=== PATIENT | male | born 1950 | race Caucasian/White ===

== ENCOUNTER 2017-12-17 21:49 | Emergency (ER) | payer MEDICARE, OTHER, SELFPAY ==
[2017-12-17 21:56] VITALS: BP 127/79; PULSE 77; RESP 18; TEMP 36.7; O2SAT 96; BMI 41.3
--- NOTE | 2017-12-17 22:03 | XR_ITS ---
XR chest portable HISTORY: ITS.REASON: CHEST PAIN ORDERING PHYSICIAN: Avi Lopes MD PATIENT AGE: 67 years COMPARISON: 12/17/2014 FINDINGS: The cardiomediastinal silhouette and pulmonary vascularity are within normal limits. The left hilum is slightly prominent but stable and may be due to overlying vasculature or postsurgical changes. There are surgical clips in the mediastinum and left hilum. The lungs are clear without infiltrates, suspicious nodules, or pleural effusions. No acute bony abnormalities. IMPRESSION: Postsurgical change, no change with no acute finding
[2017-12-17 22:33] LABS: Basophils % 0.7 % (0.1-2.0); Eosinophils # 0.2 K/mm3 (0.0-0.4); Eosinophils % 4.2 % (0.1-12.0); Hematocrit 38.3 % (42.0-52.0); Hemoglobin 12.8 g/dL (14.1-18.0); Lymphocytes # 1.5 K/mm3 (0.7-4.5); Lymphocytes % 27.5 K/mm3 (10-50); Mean Corpuscular HGB Conc 33.4 g/dL (31.8-35.4); Mean Corpuscular Hemoglobin 29.6 pg (27.0-31.2); Mean Corpuscular Volume 88.7 fl (80-94); Mean Platelet Volume 7.6 fl (7.4-10.4); Monocytes # 0.4 K/mm3 (0.1-1.0); Monocytes % 6.4 % (1.7-9.3); Neutrophils # 3.4 K/mm3 (1.8-7.8); Neutrophils % 61.2 % (37.0-80.0); Platelet Count 326 K/mm3 (142-424); Red Blood Count 4.31 M/mm3 (4.60-6.20); Red Cell Distribution Width 13.9 % (11.5-17.5); White Blood Count 5.5 K/mm3 (4.8-10.8)
[2017-12-17 22:43] LABS: Prothrombin Time 17.4 seconds (9.4-11.8)
[2017-12-17 23:00] LABS: Alanine Aminotransferase 56 U/L (12-78); Albumin Level 3.2 gm/dL (3.4-5.0); Albumin/Globulin Ratio 0.7 (1.1-1.8); Alkaline Phosphatase 79 U/L (46-116); Anion Gap 14.3 mEq/L (5-15); Aspartate Amino Transferase 54 U/L (15-37); Bilirubin,Total 0.2 mg/dL (0.2-1.0); Blood Urea Nitrogen 20 mg/dL (7-18); CKMB Relative Index 1.1 U/L (0-4.0); Calcium 8.6 mg/dL (8.5-10.1); Carbon Dioxide 29 mmol/L (21.0-32.0); Chloride 94 mmol/L (98-107); Creatine Kinase 83 U/L (39-308); Creatine Kinase MB 0.9 mg/ml (0.0-3.6); Creatinine Clearance Estimated 49 mL/min (0-300); Creatinine,Serum 1.43 mg/dL (0.70-1.30); Estimated Glomerular Filt Rate 49 ml/min (>60); GFR (African American) 60 ML/MIN (>60); Globulin 4.4 gm/dl (1.3-3.2); Potassium 4.3 mmoL/L (3.5-5.1); Sodium 133 mmol/L (136-145); Total Protein,Serum 7.6 gm/dL (6.4-8.2); Troponin I < 0.02 ng/ml (0.00-0.06)
[2017-12-17 23:02] LABS: Glucose 449 mg/dL (74-106)
--- NOTE | 2017-12-17 23:14 | HMH.EDCP ---
ED Disposition Clinical Impression: Chest pain Qualifiers: Chest pain type: precordial pain Qualified Code(s): R07.2 - Precordial pain Disposition: Home, Self-Care Condition on Discharge: Good Instructions: DI for Chest Pain Additional Instructions: call card in am Referrals: Zachary Nieves [Primary Care Provider] - - Critical Care Critical Care Time: No Attestation: On 12/17/17, the high probability of a clinically significant, sudden or life threatening deterioration of the following system(s) required my full and direct attention, intervention and personal management. The time I documented below is in addition to time spent performing reported procedures but includes the following listed in this critical care notation. Medical Decision Making - Medical Records Medical records reviewed: Yes: I reviewed the patient's medical records. Vital Signs: 12/17/17 21:56 12/18/17 00:34 Temperature 98.1 F Temperature Source Temporal Artery Scan Pulse Rate [Right Brachial] 77 65 Respiratory Rate 18 18 Blood Pressure [Right Arm] 127/79 138/81 Blood Pressure Mean [Right Arm] 95 100 Blood Pressure Source [Right Arm] Automatic Cuff Automatic Cuff Blood Pressure Position [Right Arm] Supine Supine 02 Sat by Pulse Oximetry 96 96 Oxygen Delivery Method Room Air Room Air - Lab Data Lab results reviewed: Yes: I reviewed the patient's lab results. Lab Results 12/17/17 22:25: WBC 5.5, RBC 4.31 L, Hgb 12.8 L, Hct 38.3 L, MCV 88.7, MCH 29.6, MCHC 33.4, RDW 13.9, Plt Count 326, MPV 7.6, Neut % (Auto) 61.2, Lymph % (Auto) 27.5, [place] % (Auto) 6.4, Eos % (Auto) 4.2, Baso % (Auto) 0.7, Neut # (Auto) 3.4, Lymph # (Auto) 1.5, [place] # (Auto) 0.4, Eos # (Auto) 0.2, Baso # (Auto) 0.0 12/17/17 22:25: Sodium 133 L, Potassium 4.3, Chloride 94 L, Carbon Dioxide 29, Anion Gap 14.3, BUN 20 H, Creatinine 1.43 H, Estimated Creat Clear 49, Estimated GFR 49 L, Est GFR ( Amer) 60, Glucose 449 H*, Calcium 8.6, Total Bilirubin 0.2, AST 54 H, ALT 56, Alkaline Phosphatase 79, Total Creatine Kinase 83, CK-MB (CK-2) 0.9, CK-MB (CK-2) Rel Index 1.1, Troponin I < 0.02, Total Protein 7.6, Albumin 3.2 L, Globulin 4.4 H, Albumin/Globulin Ratio 0.7 L 12/17/17 22:25: PT 17.4 H, INR 1.60 H, APTT 36.0 H 12/18/17 00:45: Troponin I < 0.02 Result diagrams: 12/17/17 22:25 12/17/17 22:25 Orders (Tests/Meds): ED MEDICATIONS Discontinued Medications Generic Name Dose Route Start Last Admin Trade Name Freq PRN Reason Stop Dose Admin Aspirin 324 mg 12/17/17 22:04 12/17/17 22:09 Aspirin 81mg Chewable Tablet PO 12/17/17 22:05 324 mg ONCE ONE Administration Nitroglycerin 1 gm 12/17/17 23:16 12/17/17 23:20 Nitroglycerin 1 Inch Oint Udp TD 12/17/17 23:17 1 gm ONCE ONE Administration ORDERS Category Date Time Status Chest XR -- portable [XR chest portable] Stat Exams 12/17/17 22:03 Taken - Radiology Data #1 Image(s): Chest Image Reviewed: Yes I reviewed the patient's radiology image Preliminary Findings: Normal/NAD - ECG Data Tracing #1 I reviewed this ECG and interpreted as documented below: Ischemic changes: non-specific ST-T wave changes - Rosendo Inquiry Pt receiving controlled substance: No Chest Pain HPI - General Chief Complaint: Chest Pain Stated Complaint: CHEST PAIN Time Seen by Provider: 12/17/17 23:15 Mode of Arrival: Family Vehicle Source of Information: Patient, Spouse, Medical Record Limitations: No Limitations Description of Symptoms (Recalled from ER Triage Doc. 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 - History of Present Illness HPI narrative: this wm with onset of ant chest pain tonight with hx of cad complaint: chest pain indicative of cardiac Onset (ago): hour(s) Duration: now resolved Activity at onset: during rest Pain location: substernal Severity: moderate Pain radiation: none Associ
--- NOTE | 2017-12-17 23:19 | ED_ITS ---
ED Disposition Clinical Impression: Chest pain Qualifiers: Chest pain type: precordial pain Qualified Code(s): R07.2 - Precordial pain Disposition: Home, Self-Care Condition on Discharge: Good Instructions: DI for Chest Pain Additional Instructions: call card in am Referrals: Zachary Nieves [Primary Care Provider] - - Critical Care Critical Care Time: No Attestation: On 12/17/17, the high probability of a clinically significant, sudden or life threatening deterioration of the following system(s) required my full and direct attention, intervention and personal management. The time I documented below is in addition to time spent performing reported procedures but includes the following listed in this critical care notation. Medical Decision Making - Medical Records Medical records reviewed: Yes: I reviewed the patient's medical records. Vital Signs: 12/17/17 21:56 12/18/17 00:34 Temperature 98.1 F Temperature Source Temporal Artery Scan Pulse Rate [Right Brachial] 77 65 Respiratory Rate 18 18 Blood Pressure [Right Arm] 127/79 138/81 Blood Pressure Mean [Right Arm] 95 100 Blood Pressure Source [Right Arm] Automatic Cuff Automatic Cuff Blood Pressure Position [Right Arm] Supine Supine 02 Sat by Pulse Oximetry 96 96 Oxygen Delivery Method Room Air Room Air - Lab Data Lab results reviewed: Yes: I reviewed the patient's lab results. Lab Results 12/17/17 22:25: WBC 5.5, RBC 4.31 L, Hgb 12.8 L, Hct 38.3 L, MCV 88.7, MCH 29.6 , MCHC 33.4, RDW 13.9, Plt Count 326, MPV 7.6, Neut % (Auto) 61.2, Lymph % (Auto ) 27.5, [place] % (Auto) 6.4, Eos % (Auto) 4.2, Baso % (Auto) 0.7, Neut # (Auto) 3.4, Lymph # (Auto) 1.5, [place] # (Auto) 0.4, Eos # (Auto) 0.2, Baso # (Auto) 0.0 12/17/17 22:25: Sodium 133 L, Potassium 4.3, Chloride 94 L, Carbon Dioxide 29, Anion Gap 14.3, BUN 20 H, Creatinine 1.43 H, Estimated Creat Clear 49, Estimated GFR 49 L, Est GFR ( Amer) 60, Glucose 449 H*, Calcium 8.6, Total Bilirubin 0.2, AST 54 H, ALT 56, Alkaline Phosphatase 79, Total Creatine Kinase 83, CK-MB (CK-2) 0.9, CK-MB (CK-2) Rel Index 1.1, Troponin I < 0.02, Total Protein 7.6, Albumin 3.2 L, Globulin 4.4 H, Albumin/Globulin Ratio 0.7 L 12/17/17 22:25: PT 17.4 H, INR 1.60 H, APTT 36.0 H 12/18/17 00:45: Troponin I < 0.02 Result diagrams: 12/17/17 22:25 12/17/17 22:25 Orders (Tests/Meds): ED MEDICATIONS Discontinued Medications Generic Name Dose Route Start Last Admin Trade Name Freq PRN Reason Stop Dose Admin Aspirin 324 mg 12/17/17 22:04 12/17/17 22:09 Aspirin 81mg Chewable Tablet PO 12/17/17 22:05 324 mg ONCE ONE Administration Nitroglycerin 1 gm 12/17/17 23:16 12/17/17 23:20 Nitroglycerin 1 Inch Oint Udp TD 12/17/17 23:17 1 gm ONCE ONE Administration ORDERS Category Date Time Status Chest XR -- portable [XR chest portable] Stat Exams 12/17/17 22:03 Taken - Radiology Data #1 Image(s): Chest Image Reviewed: Yes I reviewed the patient's radiology image Preliminary Findings: Normal/NAD - ECG Data Tracing #1 I reviewed this ECG and interpreted as documented below: Ischemic changes: non-specific ST-T wave changes - Rosendo Inquiry Pt receiving controlled substance: No Chest Pain HPI - General Chief Complaint: Chest Pain Stated Complaint: CHEST P
[2017-12-18 00:34] VITALS: BP 138/81; PULSE 65; RESP 18; O2SAT 96
[2017-12-18 01:33] LABS: Troponin I < 0.02 ng/ml (0.00-0.06)
[2017-12-18 02:11] VITALS: BP 124/66; PULSE 60; RESP 16; O2SAT 96
== END 2017-12-18 02:17 | disposition home or self-care (01) ==
PROVIDERS: Emergency Provider Emergency Medicine; PCP Internal Medicine
DX: R07.2 Precordial pain (principal); E10.65 Type 1 diabetes mellitus with hyperglycemia; Z79.4 Long term (current) use of insulin; Z79.84 Long term (current) use of oral hypoglycemic drugs; Z79.01 Long term (current) use of anticoagulants; I25.10 Atherosclerotic heart disease of native coronary artery without angina pectoris; K21.9 Gastro-esophageal reflux disease without esophagitis; Z87.891 Personal history of nicotine dependence
CPT/HCPCS: 71045; 80053; 82550; 82553; 84484; 85025; 85610; 85730; 93005; 93041; 99283

== ENCOUNTER → 2017-12-25 12:03 | Outpatient (CLI) | payer MEDICARE, OTHER, SELFPAY ==
--- NOTE | 2017-12-25 12:08 | XR_ITS ---
XR hand LT min 3V HISTORY: ITS.REASON: Left hand trigger finger ORDERING PHYSICIAN: Tay Quiros MD PATIENT AGE: 67 years COMPARISON: None FINDINGS: No fracture or dislocation. No lytic or blastic change. There is normal mineralization.. There are mild osteoarthritic changes involving the the apices of the second through fifth digits greater at the second digit and the interphalangeal joint of the first digit. No fracture or dislocation. No lytic or blastic change.. IMPRESSION: Mild osteoarthritic changes of the fingers
== END ==
PROVIDERS: PCP Internal Medicine; Visit Provider Orthopaedic Surgery
DX: M65.30 Trigger finger, unspecified finger (principal)
CPT/HCPCS: 73130

== ENCOUNTER 2017-12-27 17:40 | Emergency (ER) | payer MEDICARE, OTHER, SELFPAY ==
[2017-12-27 18:06] VITALS: BP 130/70; PULSE 65; RESP 20; TEMP 36.6; O2SAT 97; BMI 41.0
--- NOTE | 2017-12-27 18:44 | HMH.EDUTC ---
[facility] [place] Impression: Cough Disposition: Still a Patient Condition on Discharge: Fair Referrals: Zachary Nieves [Primary Care Provider] - Time of Disposition: 20:05 (Transfer to ER room 7) Medical Decision Making Vital Signs: 12/27/17 18:06 Temperature 97.9 F Temperature Source Temporal Artery Scan Pulse Rate [Right Brachial] 65 Respiratory Rate 20 Blood Pressure [Right Arm] 130/70 Blood Pressure Mean [Right Arm] 90 Blood Pressure Source [Right Arm] Automatic Cuff Blood Pressure Position [Right Arm] Sitting 02 Sat by Pulse Oximetry 97 Oxygen Delivery Method Room Air - Lab Data Lab results reviewed: Yes: I reviewed the patient's lab results. Lab Results 12/27/17 19:00: WBC 9.5, RBC 5.56, Hgb 16.2, Hct 50.0, MCV 90.0, MCH 29.1, MCHC 32.3, RDW 14.2, Plt Count 426 H, MPV 7.6, Neut % (Auto) 70.1, Lymph % (Auto) 19.4, [place] % (Auto) 6.3, Eos % (Auto) 3.5, Baso % (Auto) 0.8, Neut # (Auto) 6.7, Lymph # (Auto) 1.8, [place] # (Auto) 0.6, Eos # (Auto) 0.3, Baso # (Auto) 0.1 12/27/17 19:00: Sodium 141, Potassium 4.6, Chloride 101, Carbon Dioxide 29, Anion Gap 15.6 H, BUN 30 H, Creatinine 1.35 H, Estimated Creat Clear 93, Estimated GFR 53 L, Est GFR ( Amer) 64, Glucose 147 H 12/27/17 19:24: Influenza Type A Ag Negative, Influenza Type B Ag Negative Result diagrams: 12/27/17 19:00 12/27/17 19:00 Orders (Tests/Meds): ORDERS Category Date Time Status CXR 2 view (NOT portable) [XR chest 2V] Stat Exams 12/27/17 18:49 Taken - Physician Consults Physician Consulted: Dr. Hernandez, ER Time: 20:00 Reason -: Pt condition Comment/Response: Rvwd PMHx, HPI, exam, results, CXR images. Wants pt in ER for further evalution considering PMHx and no definitive cause. - Rosendo Inquiry Pt receiving controlled substance: No - Reevaluation(s) Time: 20:05 Reevaluation #1: Discussed results and CXR with pt and I presume, . Discussed ER MD's concern. Reluctant but agreeable to transfer to ER. [facility] - General Stated complaint: Cough, Chest Congestion Time Seen by Provider: 12/27/17 18:44 Mode of Arrival: Ambulatory Source of Information: Patient Limitations: No Limitations Description of Symptoms (Recalled from Triage Doc. by RN): COUGH, CONGESTION, WEAKNESS, BODYACHES HEENT Symptoms (Recalled from RN notes): No Resp Symptoms (Recalled from RN notes): Yes (COUGH, CONGESTION) Skin Symptoms (Recalled from RN notes): No MS Symptoms (Recalled from RN notes): No Functional Status (Recalled from RN notes): N/A - History of Present Illness Provider Complaint: Here w/ c/o nonprod cough since Sunday, 3 days ago. Fatigue primarily starting yesterday. Tylenol cold and flu today didn't help. No fever, SOA, wheezing. nonsmoker. Denies hx of lung disease. No known sick contacts. - Related Data Home Medications Medication Instructions Recorded Confirmed atorvastatin 20 mg tablet 20 mg PO QDAY 11/21/17 12/17/17 escitalopram 20 mg tablet 20 mg PO QDAY 11/21/17 12/17/17 gabapentin 300 mg capsule 1,200 mg PO BID 11/21/17 12/17/17 gemfibrozil 600 mg tablet 600 mg PO BID 11/21/17 12/17/17 metformin 1,000 mg tablet 1,000 mg PO BID 11/21/17 12/17/17 nortriptyline 10 mg capsule 10 mg PO BID 11/21/17 12/17/17 ropinirole 5 mg tablet 5 mg PO TID tab 11/21/17 12/17/17 tramadol 50 mg tablet 50 mg PO Q6H 11/21/17 12/17/17 valsartan 320 1 tab PO QDAY 11/21/17 12/17/17 mg-hydrochlorothiazide 25 mg tablet warfarin 2.5 mg tablet 6 mg PO QDAY 11/21/17 12/17/17 Insulin NPH Hum/Reg Insulin Hm 70 unit SQ PM 12/17/17 12/17/17 [Novolin 70-30 100 Unit/ml Vial] Insulin NPH Hum/Reg Insulin Hm 110 unit SQ DAILY 12/17/17 12/17/17 [Novolin 70-30 100 Unit/ml Vial] Metoprolol Tartrate [Lopressor 100 mg PO BID 12/17/17 12/17/17 100mg Tablet] Allergies Allergy/AdvReac Type Severity Reaction Status Date / Time No Known Allergies Allergy Verified 12/25/17 13:06 - Worker'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
--- NOTE | 2017-12-27 18:49 | XR_ITS ---
XR chest 2V HISTORY: ITS.REASON: cough, fatigue, no SOA, nonsmoker ORDERING PHYSICIAN: Mary Love PATIENT AGE: 67 years COMPARISON: 12/17/2017 FINDINGS: The left hilum and remains prominent with sutures in the left hilum and there is some increased density in the retrocardiac region on the left. The remaining lungs are clear. Degenerative change thoracic spine. IMPRESSION: Persistent prominence of the left hilum with some increased density of the left retrocardiac region. These findings may be postsurgical. Cannot exclude developing infiltrate in the left lung base. Chest CT with contrast may be of further value.
[2017-12-27 19:17] LABS: Basophils # 0.1 K/mm3 (0-0.2); Basophils % 0.8 % (0.1-2.0); Eosinophils # 0.3 K/mm3 (0.0-0.4); Eosinophils % 3.5 % (0.1-12.0); Hemoglobin 16.2 g/dL (14.1-18.0); Lymphocytes # 1.8 K/mm3 (0.7-4.5); Lymphocytes % 19.4 K/mm3 (10-50); Mean Corpuscular HGB Conc 32.3 g/dL (31.8-35.4); Mean Corpuscular Hemoglobin 29.1 pg (27.0-31.2); Mean Platelet Volume 7.6 fl (7.4-10.4); Monocytes # 0.6 K/mm3 (0.1-1.0); Monocytes % 6.3 % (1.7-9.3); Neutrophils # 6.7 K/mm3 (1.8-7.8); Neutrophils % 70.1 % (37.0-80.0); Platelet Count 426 K/mm3 (142-424); Red Blood Count 5.56 M/mm3 (4.60-6.20); Red Cell Distribution Width 14.2 % (11.5-17.5); White Blood Count 9.5 K/mm3 (4.8-10.8)
[2017-12-27 19:23] LABS: Anion Gap 15.6 mEq/L (5-15); Blood Urea Nitrogen 30 mg/dL (7-18); Carbon Dioxide 29 mmol/L (21.0-32.0); Chloride 101 mmol/L (98-107); Creatinine Clearance Estimated 93 mL/min (0-300); Creatinine,Serum 1.35 mg/dL (0.70-1.30); Estimated Glomerular Filt Rate 53 ml/min (>60); GFR (African American) 64 ML/MIN (>60); Glucose 147 mg/dL (74-106); Potassium 4.6 mmoL/L (3.5-5.1); Sodium 141 mmol/L (136-145)
[2017-12-27 19:24] LABS: UTC Influenza A Antigen Negative (Negative); UTC Influenza B Antigen Negative (Negative)
[2017-12-27 20:08] VITALS: BP 140/100; PULSE 64; RESP 12; TEMP 36.7; O2SAT 95; BMI 41.0
[2017-12-27 20:46] LABS: CKMB Relative Index 1.1 U/L (0-4.0); Creatine Kinase 76 U/L (39-308); Creatine Kinase MB 0.8 mg/ml (0.0-3.6); Troponin I < 0.02 ng/ml (0.00-0.06)
[2017-12-27 21:01] VITALS: BP 120/68; PULSE 82; RESP 18; TEMP 37.1; O2SAT 97
--- NOTE | 2017-12-27 21:05 | HMH.EDURI ---
ED Disposition Clinical Impression: Cough Acute bronchitis Qualifiers: Bronchitis organism: unspecified organism Qualified Code(s): J20.9 - Acute bronchitis, unspecified Disposition: Home, Self-Care Condition on Discharge: Good Instructions: DI for Acute Bronchitis Additional Instructions: Please take the antibiotics prescribed as directed, follow-up with Dr. Nieves within 24 hours if not better. If unable to see Dr. Nieves and if not getting any better, please return to this, same, emergency room, for reevaluation. Prescriptions: Amoxicillin/Potassium Clav [Augmentin 875-125 Tablet] 1 tab PO Q12H #20 tab Referrals: Zachary Nieves [Primary Care Provider] - Time of Disposition: 21:05 - Critical Care Critical Care Time: No Attestation: On 12/27/17, the high probability of a clinically significant, sudden or life threatening deterioration of the following system(s) required my full and direct attention, intervention and personal management. The time I documented below is in addition to time spent performing reported procedures but includes the following listed in this critical care notation. Medical Decision Making - Medical Records Medical records reviewed: Yes: I reviewed the patient's medical records. Vital Signs: 12/27/17 18:06 12/27/17 20:08 12/27/17 21:01 Temperature 97.9 F 98.1 F 98.7 F Temperature Source Temporal Artery Scan Oral Oral Pulse Rate 82 Pulse Rate [Right Brachial] 65 64 Respiratory Rate 20 12 18 Blood Pressure 120/68 Blood Pressure [Right Arm] 130/70 140/100 Blood Pressure Mean [Right Arm] 90 113 Blood Pressure Source Automatic Cuff Blood Pressure Source [Right Arm] Automatic Cuff Automatic Cuff Blood Pressure Position Supine Blood Pressure Position [Right Arm] Sitting Supine 02 Sat by Pulse Oximetry 97 95 Oxygen Delivery Method Room Air Room Air Room Air 12/27/17 21:04 Temperature Temperature Source Pulse Rate Pulse Rate [Right Brachial] Respiratory Rate Blood Pressure Blood Pressure [Right Arm] Blood Pressure Mean [Right Arm] Blood Pressure Source Blood Pressure Source [Right Arm] Blood Pressure Position Blood Pressure Position [Right Arm] 02 Sat by Pulse Oximetry Oxygen Delivery Method Room Air - Lab Data Lab results reviewed: Yes: I reviewed the patient's lab results. Lab Results 12/27/17 19:00: WBC 9.5, RBC 5.56, Hgb 16.2, Hct 50.0, MCV 90.0, MCH 29.1, MCHC 32.3, RDW 14.2, Plt Count 426 H, MPV 7.6, Neut % (Auto) 70.1, Lymph % (Auto) 19.4, [place] % (Auto) 6.3, Eos % (Auto) 3.5, Baso % (Auto) 0.8, Neut # (Auto) 6.7, Lymph # (Auto) 1.8, [place] # (Auto) 0.6, Eos # (Auto) 0.3, Baso # (Auto) 0.1 12/27/17 19:00: Sodium 141, Potassium 4.6, Chloride 101, Carbon Dioxide 29, Anion Gap 15.6 H, BUN 30 H, Creatinine 1.35 H, Estimated Creat Clear 93, Estimated GFR 53 L, Est GFR ( Amer) 64, Glucose 147 H 12/27/17 19:24: Influenza Type A Ag Negative, Influenza Type B Ag Negative 12/27/17 20:16: Total Creatine Kinase 76, CK-MB (CK-2) 0.8, CK-MB (CK-2) Rel Index 1.1, Troponin I < 0.02 Result diagrams: 12/27/17 19:00 12/27/17 19:00 Orders (Tests/Meds): ED MEDICATIONS Discontinued Medications Generic Name Dose Route Start Last Admin Trade Name Maria Ines PRN Reason Stop Dose Admin Ceftriaxone Sodium 1 gm 12/27/17 21:04 12/27/17 21:19 Rocephin 1gm Vial IM 12/27/17 21:05 1 gm ONCE ONE Administration Lidocaine HCl 0 ml 12/27/17 21:04 12/27/17 21:19 Lidocaine 1% 10ml Mdv IM 12/27/17 21:05 2.1 cc ONCE ONE Administration Oxycodone/Acetaminophen 1 each 12/27/17 21:04 12/27/17 21:22 Percocet 10mg/325mg Tablet PO 12/27/17 21:05 1 each ONCE ONE Administration ORDERS Category Date Time Status 12-lead EKG Request [ECG Request by /Percy] Stat Y 12/27/17 20:15 Ordered - Radiology Data #1 Image(s): Chest Image Reviewed: Yes I reviewed the patient's radiology results, Yes I have reviewed radiologist's interp
--- NOTE | 2018-01-02 08:22 | PC.NURSE ---
DOCTOR GOINS CALLED TODAY AND STATED THAT HE TREATED PATIENT FOR PNEUMONIA AND AFTER DOCTOR BARRERA REVIEWED HIS CHEST XRAY A CHEST CT WAS RECOMMENDED. DOCTOR GOINS REQUESTED THAT THE PATIENT BE CALLED AND FOLLOWED UP WITH REGARDING HIS CONDITION AND IF HE WASN'T IMPROVING ADVISE PT TO SEEK FOLLOW UP CARE WITH DOCTOR MEDINA OR HAVE HIM REPORT TO ER TO HAVE A CT SCAN PERFORMED. PT WAS REACHED VIA TELEPHONE AT 0820 AND HE ADVISED THAT HE WAS FEELING MUCH BETTER. ADVISED PT TO FOLLOW UP WITH DOCTOR MEDINA IF NEEDED.
== END 2017-12-27 21:05 | disposition home or self-care (01) ==
LOC: UTC 17:56 → ER 20:07
PROVIDERS: Nurse Practitioner Family; Emergency Provider Emergency Medicine; PCP Internal Medicine
DX: J20.9 Acute bronchitis, unspecified (principal); E11.9 Type 2 diabetes mellitus without complications; Z79.84 Long term (current) use of oral hypoglycemic drugs; Z79.4 Long term (current) use of insulin; Z79.899 Other long term (current) drug therapy; I25.10 Atherosclerotic heart disease of native coronary artery without angina pectoris; I10 Essential (primary) hypertension; K21.9 Gastro-esophageal reflux disease without esophagitis; E78.5 Hyperlipidemia, unspecified; F32.9 Major depressive disorder, single episode, unspecified
CPT/HCPCS: 71046; 80048; 82550; 82553; 84484; 85025; 87804; 93005; 96372; 99282

== ENCOUNTER 2018-01-10 14:00 | Outpatient (RCR) | payer MEDICARE, OTHER, SELFPAY ==
--- NOTE | 2018-01-03 14:42 | HMH.PTOPEV ---
Rehab Outpatient Evaluation Rehab OP Evaluation Start: 01/03/18 14:31 Freq: Status: Active Protocol: Document 01/03/18 14:31 TFRY (Rec: 01/03/18 14:42 TFRY [id number]) Electronically Signed By Ivelisse Whitley OT 01/03/18 14:31 Outpatient Therapy Subjective History Subjective History THIS IS A 67 YEAR OLD RIGHT HANDED MALE REFERRED TO OCCUPATIONAL THERAPY FOR LEFT THUMB IP JOINT FLEXOR TENDERITIS. PATIENT STATES THAT THIS IS ONGOING FOR A YEAR AND THAT HE IS RIGHT HANDED BUT USES HIS LEFT FOR EVERYTHING HE HAS TREMORS IN HIS RIGHT HAND. Chief Complaint Pain Stiff Catches/Locks Symptom Type Sharp Symptoms Relieved By Nothing Symptoms Aggravated By Physical Activity Prior Functional Limitations None Current Functional Limitations None Symptom Description Constant but Variable Level of pain today (0-10) 1 Pain scale - at its best (0-10) 0 Pain scale - at its worst (0-10) 10 Wrist/Hand Eval Palpation Tenderness/Visual Exam Wrist/Hand Palpation Overall Comment EDEMA AT IP JOINT OF LEFT THUMB Flexibility Deficits Hand Intrinsics Muscle Length (L) WFL Thumb Extensors Muscle Length (L) WFL Thumb Abductors Muscle Length (L) WFL Thumb Range of Motion Left Thumb Metacarpophalangeal Flexion Active 0-50 Range of Motion (degrees) Thumb Interphalangeal Flexion Active 0-45 Range of Motion (degrees) Outpatient Therapy Assessment Impairments Problems/Impairmments Palpation Tenderness Impaired Range of Motion Subjective C/O Pain Prognosis Rehab Potential Fair Clinical Impression Consistent with Diagnosis Yes Short Term Goals Number of Weeks 2 Decreased Palpation Tenderness Yes: IP JOINT OF LEFT THUMB Increase Range of Motion Yes: LEFT THUMB IP JOINT TO 0- 50 Decrease Subjective C/O Pain Yes: 5 AT WORSE Patient to be Ind w/ HEP Yes Patient to be Ind w/ Advanced 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
== END 2018-01-10 14:01 | disposition home or self-care (01) ==
LOC: OT 14:00
PROVIDERS: PCP Internal Medicine; Visit Provider Orthopaedic Surgery
DX: M65.842 Other synovitis and tenosynovitis, left hand (principal); M19.042 Primary osteoarthritis, left hand; M65.30 Trigger finger, unspecified finger
CPT/HCPCS: 97033; 97140; 97163; 97165

== ENCOUNTER 2018-01-25 14:47 | Emergency (ER) | payer MEDICARE, OTHER, SELFPAY ==
[2018-01-25 14:48] VITALS: BMI 41.5
--- NOTE | 2018-01-25 14:49 | XR_ITS ---
XR chest portable COMPARISON: Portable upright chest 12/17/2017 HISTORY: Shortness of breath TECHNIQUE: Portable upright chest FINDINGS: This a fairly good inspiration. There is moderate generalized cardio megaly. There are sternal wire sutures noted. The lung weiss are clear of infiltrate and is no obvious evidence of failure. There is no pleural fluid. IMPRESSION: Generalized cardiomegaly, no definite acute chest pathology noted
--- NOTE | 2018-01-25 14:50 | HMH.EDGENADL ---
ED Disposition Clinical Impression: Pre-syncope Hypotension Qualifiers: Hypotension type: unspecified hypotension type Qualified Code(s): I95.9 - Hypotension, unspecified Disposition: Xfer Short-Term Hosp Condition on Discharge: Fair Referrals: Zachary Nieves [Primary Care Provider] - - Critical Care Critical Care Time: Yes Attestation: On , the high probability of a clinically significant, sudden or life threatening deterioration of the following system(s) required my full and direct attention, intervention and personal management. The time I documented below is in addition to time spent performing reported procedures but includes the following listed in this critical care notation. Total Critical Care Time: 40 Vital system(s) involved:: Circulatory Failure My critical care processes included: Assessment & monitoring of V/S, Initial and Re-exams, Data Review/Interpretation, Coordinating Care, Medication Orders and management, Documentation Medical Decision Making Vital Signs: 01/25/18 14:55 01/25/18 15:18 01/25/18 16:30 Temperature 97.8 F Temperature Source Oral Pulse Rate [Right Radial] 50 L 52 L 53 L Respiratory Rate 22 Blood Pressure [Right Arm] 93/56 100/47 117/73 Blood Pressure Mean [Right Arm] 68 64 87 02 Sat by Pulse Oximetry 95 Oxygen Delivery Method Nasal Cannula Oxygen Flow Rate (LPM) 2 - Lab Data Lab Results 01/25/18 15:00: WBC 9.9, RBC 3.45 L, Hgb 9.9 L, Hct 31.6 L, MCV 91.5, MCH 28.6, MCHC 31.2 L, RDW 14.3, Plt Count 560 H, MPV 7.6, Neut % (Auto) 73.3, Lymph % (Auto) 17.1, [place] % (Auto) 6.4, Eos % (Auto) 2.6, Baso % (Auto) 0.7, Neut # (Auto) 7.3, Lymph # (Auto) 1.7, [place] # (Auto) 0.6, Eos # (Auto) 0.3, Baso # (Auto) 0.1 01/25/18 15:00: Total Creatine Kinase 36 L, CK-MB (CK-2) 0.6, CK-MB (CK-2) Rel Index 1.7, Troponin I 0.03 01/25/18 15:00: Sodium 132 L, Potassium 4.4, Chloride 94 L, Carbon Dioxide 33 H, Anion Gap 9.4, BUN 18, Creatinine 1.14, Estimated Creat Clear 62, Estimated GFR 64, Est GFR ( Amer) 78, Glucose 194 H, Calcium 8.6, Total Bilirubin 0.3, AST 48 H, ALT 114 H, Alkaline Phosphatase 97, Total Protein 6.7, Albumin 2.4 L, Globulin 4.3 H, Albumin/Globulin Ratio 0.6 L 01/25/18 15:00: PT 19.4 H, INR 1.79 H 01/25/18 15:10: Urine Opiates Screen Positive H, Ur Barbituates Screen Negative, Ur Phencyclidine Scrn Negative, Ur Amphetamines Screen Negative, U Methamphetamines Scrn Negative, U Benzodiazepines Scrn Negative, Urine Cocaine Screen Negative, U Marijuana (THC) Screen Negative 01/25/18 15:10: Urine Color Yellow, Urine Appearance Clear, Urine pH 7.0, Ur Specific [place] 1.015, Urine Protein Negative, Urine Glucose (UA) Negative, Urine Ketones Negative, Urine Blood Negative, Urine Nitrate Negative, Urine Bilirubin Negative, Urine Urobilinogen 0.2, Ur Leukocyte Esterase Negative, Urine RBC None, Urine WBC None, Ur Squamous Epith Cells None, Urine Bacteria Trace, Hyaline Casts 3-5 01/25/18 15:53: Lactic Acid 1.8 Result diagrams: 01/25/18 15:00 01/25/18 15:00 Orders (Tests/Meds): ORDERS Category Date Time Status ECG Request by /Percy Stat Y 01/25/18 14:49 Stop Req - Radiology Data #1 Image(s): Chest Image Reviewed: Yes I reviewed the patient's radiology results no acute disease. Surgical changes. - ECG Data Tracing #1 EKG interpreted by Vladimir Nichols MD: Rhythm: sinus bradycardia Rate: 51 Holman: Left Ectopy: none Conduction: Prolonged QT ST Segment Changes: none T Wave Changes: Nonspecific Q Waves: none No evidence of acute ischemia or injury Prior electrocardiagrams reviewed. No change from prior tracings. - Rosendo Inquiry Pt receiving controlled substance: No Medical Decision Making Narrative: 3:50 PM: patient is feeling good at this time. Blood pressure has improved. prefers admission to [facility]. 4:39 PM: Case discussed with Dr. Ward, hospitalist at [facility], who accepts the patient.
[2018-01-25 14:55] VITALS: BP 93/56; PULSE 50; RESP 22; TEMP 36.6; O2SAT 95; BMI 41.5
[2018-01-25 15:09] LABS: Basophils # 0.1 K/mm3 (0-0.2); Basophils % 0.7 % (0.1-2.0); Eosinophils # 0.3 K/mm3 (0.0-0.4); Eosinophils % 2.6 % (0.1-12.0); Hematocrit 31.6 % (42.0-52.0); Hemoglobin 9.9 g/dL (14.1-18.0); Lymphocytes # 1.7 K/mm3 (0.7-4.5); Lymphocytes % 17.1 K/mm3 (10-50); Mean Corpuscular HGB Conc 31.2 g/dL (31.8-35.4); Mean Corpuscular Hemoglobin 28.6 pg (27.0-31.2); Mean Corpuscular Volume 91.5 fl (80-94); Mean Platelet Volume 7.6 fl (7.4-10.4); Monocytes # 0.6 K/mm3 (0.1-1.0); Monocytes % 6.4 % (1.7-9.3); Neutrophils # 7.3 K/mm3 (1.8-7.8); Neutrophils % 73.3 % (37.0-80.0); Platelet Count 560 K/mm3 (142-424); Red Blood Count 3.45 M/mm3 (4.60-6.20); Red Cell Distribution Width 14.3 % (11.5-17.5); White Blood Count 9.9 K/mm3 (4.8-10.8)
[2018-01-25 15:16] LABS: Microscopic, Urine URINE MICROSCOPIC (MICROSCOPIC)
[2018-01-25 15:17] LABS: Appearance,Urine CLEAR (Clear); Bilirubin,Urine Negative (Negative); Blood, Urine Negative (Negative); Color,Urine YELLOW (Yellow); Glucose,Urine (UA) Negative (Negative); Ketones,Urine Negative (Negative); Leukocyte Esterase,Urine Negative (Negative); Nitrate,Urine Negative (Negative); Protein,Urine Negative (Negative); Specific Gravity, Urine 1.015 (1.005-1.030); Urobilinogen,Urine 0.2 EU/dl (0.2)
[2018-01-25 15:18] VITALS: BP 100/47; PULSE 52
[2018-01-25 15:23] LABS: Alanine Aminotransferase 114 U/L (12-78); Albumin Level 2.4 gm/dL (3.4-5.0); Albumin/Globulin Ratio 0.6 (1.1-1.8); Alkaline Phosphatase 97 U/L (46-116); Anion Gap 9.4 mEq/L (5-15); Aspartate Amino Transferase 48 U/L (15-37); Bilirubin,Total 0.3 mg/dL (0.2-1.0); Blood Urea Nitrogen 18 mg/dL (7-18); Calcium 8.6 mg/dL (8.5-10.1); Carbon Dioxide 33 mmol/L (21.0-32.0); Chloride 94 mmol/L (98-107); Creatinine Clearance Estimated 62 mL/min (0-300); Creatinine,Serum 1.14 mg/dL (0.70-1.30); Estimated Glomerular Filt Rate 64 ml/min (>60); GFR (African American) 78 ML/MIN (>60); Globulin 4.3 gm/dl (1.3-3.2); Glucose 194 mg/dL (74-106); Potassium 4.4 mmoL/L (3.5-5.1); Sodium 132 mmol/L (136-145); Total Protein,Serum 6.7 gm/dL (6.4-8.2)
[2018-01-25 15:26] LABS: INR 1.79 (0.9-1.1); Prothrombin Time 19.4 seconds (9.4-11.8)
[2018-01-25 15:29] LABS: Amphetamine/Metha Screen,Urine Negative ng/mL (<1000); Barbiturates Screen,Urine Negative ng/mL (<200); Benzodiazepines Screen,Urine Negative ng/mL (200); Cannabinoid Screen,Urine Negative ng/mL (<50); Cocaine Screen,Urine Negative ng/g (<300); Methadone Screen,Urine Negative ng/mL (<300); Opiate Screen,Urine Positive ng/mL (<300); Phencyclidine Screen,Urine Negative ng/mL (<25)
[2018-01-25 15:38] LABS: CKMB Relative Index 1.7 U/L (0-4.0); Creatine Kinase 36 U/L (39-308); Creatine Kinase MB 0.6 mg/ml (0.0-3.6); Troponin I 0.03 ng/ml (0.00-0.06)
[2018-01-25 15:43] LABS: Bacteria,Urine Trace /lpf
--- NOTE | 2018-01-25 15:56 | PC.NURSE ---
[facility] HOSPITALIST PAGED PER MD REQUEST.
[2018-01-25 16:16] LABS: Lactic Acid 1.8 mmol/L (0.4-2.0)
[2018-01-25 16:30] VITALS: BP 117/73; PULSE 53
[2018-01-25 18:32] VITALS: BP 142/72; PULSE 60; RESP 20; TEMP 36.8; O2SAT 97
--- NOTE | 2018-01-25 18:35 | PC.NURSE ---
report called to melissa hendricks
== END 2018-01-25 18:30 | disposition short-term general hospital (02) ==
PROVIDERS: Emergency Provider Emergency Medicine; PCP Internal Medicine
DX: R55 Syncope and collapse (principal); I95.9 Hypotension, unspecified; E10.65 Type 1 diabetes mellitus with hyperglycemia; Z79.4 Long term (current) use of insulin; Z79.84 Long term (current) use of oral hypoglycemic drugs; Z79.01 Long term (current) use of anticoagulants; I25.10 Atherosclerotic heart disease of native coronary artery without angina pectoris; K21.9 Gastro-esophageal reflux disease without esophagitis; E78.5 Hyperlipidemia, unspecified; I10 Essential (primary) hypertension; Z79.899 Other long term (current) drug therapy
CPT/HCPCS: 36415; 71045; 80053; 80305; 81001; 82550; 82553; 83605; 84484; 85025; 85610; 93005; 96365; 99285

== ENCOUNTER → 2018-04-29 11:54 | Outpatient (CLI) | payer MEDICARE, OTHER, SELFPAY ==
[2018-04-29 12:32] LABS: INR 2.02 (0.9-1.1)
[2018-04-29 14:47] LABS: Alanine Aminotransferase 54 U/L (12-78); Albumin Level 3.7 gm/dL (3.4-5.0); Alkaline Phosphatase 91 U/L (46-116); Anion Gap 14.5 mEq/L (5-15); Aspartate Amino Transferase 48 U/L (15-37); Bilirubin,Total 0.4 mg/dL (0.2-1.0); Blood Urea Nitrogen 27 mg/dL (7-18); Calcium 9.3 mg/dL (8.5-10.1); Carbon Dioxide 28 mmol/L (21.0-32.0); Chloride 103 mmol/L (98-107); Creatinine,Serum 0.99 mg/dL (0.70-1.30); Estimated Glomerular Filt Rate 76 ml/min (>60); GFR (African American) 92 ML/MIN (>60); Globulin 3.8 gm/dl (1.3-3.2); Glucose 174 mg/dL (74-106); Potassium 4.5 mmoL/L (3.5-5.1); Sodium 141 mmol/L (136-145); Total Protein,Serum 7.5 gm/dL (6.4-8.2)
== END ==
PROVIDERS: Visit Provider Internal Medicine
DX: E11.51 Type 2 diabetes mellitus with diabetic peripheral angiopathy without gangrene (principal); I10 Essential (primary) hypertension; I25.10 Atherosclerotic heart disease of native coronary artery without angina pectoris
CPT/HCPCS: 36415; 80053; 85610

== ENCOUNTER → 2018-09-03 10:12 | Outpatient (CLI) | payer MEDICARE, OTHER, SELFPAY ==
[2018-09-03 12:18] LABS: INR 1.87 (0.9-1.1); Prothrombin Time 18.9 seconds (9.4-11.8)
[2018-09-03 12:38] LABS: Alanine Aminotransferase 55 U/L (12-78); Albumin Level 3.5 gm/dL (3.4-5.0); Alkaline Phosphatase 96 U/L (46-116); Anion Gap 11.8 mEq/L (5-15); Aspartate Amino Transferase 36 U/L (15-37); Bilirubin,Total 0.2 mg/dL (0.2-1.0); Blood Urea Nitrogen 15 mg/dL (7-18); Calcium 8.9 mg/dL (8.5-10.1); Carbon Dioxide 30 mmol/L (21.0-32.0); Chloride 102 mmol/L (98-107); Cholesterol 141 mg/dL (140-200); Creatinine,Serum 0.85 mg/dL (0.70-1.30); Estimated Glomerular Filt Rate 90 ml/min (>60); GFR (African American) 109 ML/MIN (>60); Globulin 3.6 gm/dl (1.3-3.2); Glucose 59 mg/dL (74-106); HDL Cholesterol 28 mg/dL (27-67); LDL Cholesterol 80 mg/dL (0-130); Potassium 4.8 mmoL/L (3.5-5.1); Sodium 139 mmol/L (136-145); Total Protein,Serum 7.1 gm/dL (6.4-8.2); Triglycerides 165 mg/dL (30-200); VLDL Cholesterol 33 mg/dL (0-40)
[2018-09-03 12:47] LABS: Hemoglobin A1C 7.6 % (0.0-7.0)
== END ==
PROVIDERS: PCP Internal Medicine; Visit Provider Internal Medicine
DX: I25.10 Atherosclerotic heart disease of native coronary artery without angina pectoris (principal); I10 Essential (primary) hypertension; E11.51 Type 2 diabetes mellitus with diabetic peripheral angiopathy without gangrene; E11.42 Type 2 diabetes mellitus with diabetic polyneuropathy; Z86.73 Personal history of transient ischemic attack (TIA), and cerebral infarction without residual deficits
CPT/HCPCS: 36415; 80053; 80061; 83036; 85610